=== PATIENT | female | born 1935 | race Caucasian/White ===

== ENCOUNTER → 2016-09-03 | Day surgery (SDC) | payer OTHER ==
[2016-09-02 12:22] VITALS: BMI 32.2
[~2016-09-03] MED LIST: BOTULINUM TOXIN A 100 UNITS VIAL NR ONE; LACTATED RINGERS SOLUTION 1,000 ML IV SCH; ONDANSETRON 4 MG/2 ML VIAL IVPUSH PRN; OXYCODONE/APAP 5/325MG COMBO TABLET PO PRN; PROPOFOL 20 ML ONE; SUCCINYLCHOLINE CHLORIDE 200 MG/10 ML VIAL ONE; ceFAZolin SODIUM 1 GM VIAL IVPB ONE; ceFAZolin SODIUM 1 GM VIAL ONE
--- NOTE | 2016-09-03 09:46 | HP ---
DATE OF ADMISSION: 09/03/2016 HISTORY OF PRESENT ILLNESS: Patient is an 80-year-old female with history of overactive bladder, has history of severe urgency. There was no help with both medication and exercises. She does have history of high blood pressure, diabetes, and atherosclerotic heart disease. She has had a pacemaker inserted. ALLERGIES: She does have allergies to PEANUTS and SULFA. SOCIAL HISTORY: She denies any ethanolism or tobacco. PHYSICAL EXAMINATION: General: Revealed a well-developed female in no apparent distress. Abdomen: Soft. Pelvic: Examination revealed a dry introitus with a positive Melquiades test. DIAGNOSTIC DATA: Urinalysis was positive for blood. PLAN: Botox was recommended. All possible side effects were explained to the patient, and she agrees. Will undergo cystourethroscopy with Botox injection. FRENCH PORTILLO M.D. [id number]
[2016-09-03 10:59] VITALS: TEMP 98
[2016-09-03 11:28] VITALS: BP 141/72; PULSE 75
== END | disposition home or self-care (01) ==
LOC: JASU-SURG 06:13
PROVIDERS: ATTEND Urology
PROC: 3E0K8GC Introduction of Other Therapeutic Substance into Genitourinary Tract, Via Natural or Artificial Opening Endoscopic (ICD-10-PCS; principal; 2016-09-03 09:00)
DX: N32.81 Overactive bladder (principal)
CPT/HCPCS: 52287; J0585; 87086; 94760

== ENCOUNTER 2022-04-03 13:11 | Emergency (ER) | payer OTHER ==
[2022-04-03 13:25] VITALS: RESP 18; TEMP 97.6; BMI 27.3
[2022-04-03] MEDS ORDERED: ACETAMINOPHEN 1000 MG/100 ML BAG IVPB ONE (15:22)
[2022-04-03] MEDS ORDERED: ACETAMINOPHEN INJECTION 100 ML IVPB ONE (16:03)
[2022-04-03 16:21] LABS: BASO % 0.6 % (0-2.0); EOS % 4.2 % (0-4.5); HEMATOCRIT 36.4 % (32.4-45.2); LYMPH % 16.6 % (8-40); MCH 32.6 pg (25.7-33.7); MCHC 33.1 g/dl (32.0-36.0); MEAN CELL VOLUME 98.4 fl (80-96); MEAN PLT VOLUME 7.6 fl (7.5-11.1); MONO % 7.5 % (3.8-10.2); NEUT % 71.1 % (42.8-82.8); PLATELET COUNT 229 10^3/uL (134-434); RBC 3.69 M/mm3 (3.60-5.2); RDW 13.9 % (11.6-15.6); WHITE BLOOD COUNT 3.7 K/mm3 (4.0-10.0)
[2022-04-03 16:35] LABS: ALBUMIN 3.7 g/dl (3.4-5.0); BLOOD UREA NITROGEN 18.7 mg/dL (7-18)
[2022-04-03 16:38] LABS: CREATININE 0.6 mg/dL (0.55-1.3)
[2022-04-03 16:40] LABS: BILIRUBIN,TOTAL 0.4 mg/dL (0.2-1); TOT PROT 6.8 g/dl (6.4-8.2)
[2022-04-03] MEDS ORDERED: KETOROLAC TROMETHAMINE 30 MG/1 ML VIAL IM ONE (17:43)
[2022-04-03] MEDS ORDERED: KETOROLAC TROMETHAMINE 30 MG/1 ML VIAL ONE (18:09)
[2022-04-03 20:30] VITALS: BP 110/78; PULSE 78
== END 2022-04-03 20:30 | disposition home or self-care (01) ==
LOC: JER 13:11
PROC: 2W39X1Z Immobilization of Left Upper Extremity using Splint (ICD-10-PCS; principal; 2022-04-03)
PROC: 3E0333Z Introduction of Anti-inflammatory into Peripheral Vein, Percutaneous Approach (ICD-10-PCS; 2022-04-03)
PROC: 3E0233Z Introduction of Anti-inflammatory into Muscle, Percutaneous Approach (ICD-10-PCS; 2022-04-03)
DX: S42.495A Other nondisplaced fracture of lower end of left humerus, initial encounter for closed fracture (principal); W01.0XXA Fall on same level from slipping, tripping and stumbling without subsequent striking against object, initial encounter
CPT/HCPCS: 29105; 36415; 73070-TC-LT-FY; 73090-TC-LT-FY; 80053; 85025; 87040; 93971; 96374; 96375; 99285-25

== ENCOUNTER 2022-04-05 18:35 | Emergency (ER) | payer OTHER ==
[2022-04-05 18:54] VITALS: BP 116/74; PULSE 83; RESP 18; TEMP 98; BMI 222.6
== END 2022-04-05 23:07 | disposition home or self-care (01) ==
LOC: JER 18:35
DX: M79.622 Pain in left upper arm (principal)
CPT/HCPCS: 99281-25

== ENCOUNTER 2022-10-10 17:07 | Emergency (ER) | payer OTHER ==
[2022-10-10 17:22] VITALS: TEMP 98; BMI 22.3
[2022-10-10] MEDS ORDERED: ACETAMINOPHEN 1000 MG/100 ML BAG IVPB ONE (18:00)
[2022-10-10] MEDS ORDERED: ASPIRIN 81 MG CHEWABLE TABLETS PO ONE (18:01)
[2022-10-10] MEDS ORDERED: ACETAMINOPHEN INJECTION 100 ML IVPB ONE (18:09)
[2022-10-10] MEDS ORDERED: ASPIRIN 81 MG CHEWABLE TABLETS ONE (18:09)
[2022-10-10] MEDS ORDERED: LIDOCAINE 5% TOPICAL PATCH TP ONE (18:13)
[2022-10-10] MEDS ORDERED: LIDOCAINE 5% TOPICAL PATCH ONE (18:14)
[2022-10-10 18:30] LABS: EOS % 1.5 % (0-4.5); HEMATOCRIT 37.4 % (32.4-45.2); HEMOGLOBIN 12.7 GM/dL (10.7-15.3); LYMPH % 18.9 % (8-40); MCH 32.2 pg (25.7-33.7); MEAN CELL VOLUME 94.8 fl (80-96); MONO % 8.5 % (3.8-10.2); NEUT % 71.1 % (42.8-82.8); PLATELET COUNT 207 10^3/uL (134-434); RBC 3.94 M/mm3 (3.60-5.2); RDW 13.8 % (11.6-15.6); WHITE BLOOD COUNT 3.9 K/mm3 (4.0-10.0)
[2022-10-10 18:51] LABS: POTASSIUM 4.6 mmol/L (3.5-5.1)
[2022-10-10 18:53] LABS: ALBUMIN 3.8 g/dl (3.4-5.0); CALCIUM 9.1 mg/dL (8.5-10.1)
[2022-10-10 18:54] LABS: BLOOD UREA NITROGEN 15.1 mg/dL (7-18); MAGNESIUM 2.2 mg/dL (1.8-2.4)
[2022-10-10 18:56] LABS: CREATININE 0.7 mg/dL (0.55-1.3); PHOSPHOROUS 3.5 mg/dL (2.5-4.9)
[2022-10-10 18:58] LABS: BILIRUBIN,TOTAL 0.4 mg/dL (0.2-1); TOT PROT 7.1 g/dl (6.4-8.2)
[2022-10-10 19:02] LABS: N-TERMINAL BNP 148.4 pg/ml (5-450)
[2022-10-10] MEDS ORDERED: LIDOCAINE PATCH REMOVAL MC SCH (22:00)
[2022-10-10 22:36] VITALS: BP 112/46; PULSE 85; RESP 17
== END 2022-10-11 05:15 | disposition home or self-care (01) ==
LOC: JER 17:07
PROC: 3E033NZ Introduction of Analgesics, Hypnotics, Sedatives into Peripheral Vein, Percutaneous Approach (ICD-10-PCS; principal; 2022-10-10)
DX: R07.9 Chest pain, unspecified (principal); R06.02 Shortness of breath; Z20.822 Contact with and (suspected) exposure to COVID-19
CPT/HCPCS: 0241U-QW; 36415; 71045-TC-FY; 71275-TC; 80053; 83690; 83735; 83880; 84100; 84484; 85025; 86850; 86900; 86901; 93005; 93010; 96374; 99285-25; Q9967

== ENCOUNTER 2024-08-27 17:44 | Emergency (ER) | payer OTHER ==
[2024-08-27 18:45] VITALS: TEMP 98.1; BMI 28.1
[2024-08-27] MEDS ORDERED: ACETAMINOPHEN INJECTION 100 ML ONE (18:52)
[2024-08-27] MEDS: ACETAMINOPHEN 1000 MG/100 ML BAG IVPB ONE (18:56)
[2024-08-27 18:58] LABS: ABSOLUTE IMMATURE GRANULOCYTES 0.01 x10^3/uL (0.0-0.031); BASOPHILS # 0.02 x10^3/uL (0.01-0.08); EOSINOPHIL % 1.4 % (0.7-5.8); EOSINOPHILS # 0.05 x10^3/uL (0.04-0.36); HEMATOCRIT 36.1 % (34.1-44.9); MCHC 33.2 g/dl (32.2-35.5); MEAN PLT VOLUME 10.8 fl (9.4-12.3); MONOCYTE # 0.33 x10^3/uL (0.24-0.86); PLATELET COUNT 194 x10^3/uL (182-369); RDW 12.7 % (12.5-17.0)
[2024-08-27 19:04] LABS: POTASSIUM 4.1 mmol/L (3.5-5.1)
[2024-08-27 19:06] LABS: CALCIUM 8.8 mg/dL (8.5-10.1)
[2024-08-27 19:07] LABS: ALBUMIN 3.6 g/dl (3.4-5.0); BLOOD UREA NITROGEN 15.1 mg/dL (7-18); MAGNESIUM 2.2 mg/dL (1.8-2.4)
[2024-08-27 19:09] LABS: CREATININE 0.7 mg/dL (0.55-1.3)
[2024-08-27 19:11] LABS: BILIRUBIN,TOTAL 0.4 mg/dL (0.2-1); TOT PROT 6.9 g/dl (6.4-8.2)
[2024-08-27 19:16] LABS: INR 1.12 (0.83-1.09); PROTHROMBIN TIME (PATIENT) 12.3 SEC (9.7-13.0)
[2024-08-27 19:17] LABS: ACTIVATED PTT 25.5 SECONDS (25.2-36.5)
[2024-08-27 20:55] LABS: EPI CELLS 1 /uL (0-25.1); HYALINE CASTS 0 /uL (0-3.1); URINE APPEARANCE CLEAR; URINE BACTERIA 2709 /uL (0-1359); URINE BILIRUBIN NEGATIVE (NEGATIVE); URINE COLOR YELLOW; URINE GLUCOSE (UA) NEGATIVE (NEGATIVE); URINE KETONE NEGATIVE (NEGATIVE); URINE LEUK ESTERASE NEGATIVE (NEGATIVE); URINE NITRITE POSITIVE (NEGATIVE); URINE PROTEIN NEGATIVE (NEGATIVE); URINE RBC 6 /uL (0-23.9); URINE UROBILINOGEN 0.2 mg/dL (0.2-1.0); URINE WBC 12 /uL (0-25.8)
[2024-08-27 21:12] VITALS: BP 111/60; PULSE 61; RESP 16
[2024-08-27] MEDS ORDERED: CEPHALEXIN MONOHYDRATE 500 MG CAPSULE (UD) ONE (21:13)
[2024-08-27] MEDS: CEPHALEXIN MONOHYDRATE 500 MG CAPSULE (UD) PO ONE (21:23)
== END 2024-08-27 21:23 | disposition home or self-care (01) ==
LOC: JER 17:44
PROC: 3E033NZ Introduction of Analgesics, Hypnotics, Sedatives into Peripheral Vein, Percutaneous Approach (ICD-10-PCS; principal; 2024-08-27)
DX: R07.89 Other chest pain (principal); N39.0 Urinary tract infection, site not specified; R06.02 Shortness of breath; R53.83 Other fatigue; R42 Dizziness and giddiness; R10.9 Unspecified abdominal pain; M79.604 Pain in right leg; M79.605 Pain in left leg; R11.0 Nausea; R35.0 Frequency of micturition; R51.9 Headache, unspecified; Z63.79 Other stressful life events affecting family and household
CPT/HCPCS: 0241U-QW; 36415; 71045-TC-FY; 80053; 81003; 83735; 83880; 84484; 85025; 85610; 85730; 87086; 87186; 93005; 93010; 93308; 96374; 99285-25; J0131